=== PATIENT | male | born 1995 | race Caucasian/White ===

== ENCOUNTER 2018-09-05 20:10 | Emergency (ER) | payer OTHER ==
[~2018-09-05] VITALS: Ht 165.1 cm; Wt 90.7 kg
[2018-09-05 20:24] VITALS: BP 136/74; Ht 165.1 cm; Wt 90.7 kg
== END 2018-09-05 20:57 | disposition other institution (70) ==
LOC: EDBD 20:10 → ED 20:10
DX: Z02.89 Encounter for other administrative examinations (principal)